=== PATIENT | female | born 1955 | race Caucasian/White ===

== ENCOUNTER 2019-01-25 14:39 | Inpatient (IN) | payer SELFPAY ==
[~2019-01-25] VITALS: Ht 170.2 cm; Wt 86.6 kg
[~2019-01-25 14:39] MED LIST: CAR350 PO; DOC100 PO; DULO20CA16 PO; LISI-362 PO; MELO-150 PO; MET500 PO; NIA500 PO; PRE10 PO; PRE50 PO; VIT D3
[2019-01-25] MEDS ORDERED: PARO40TA88 (14:49)
[2019-01-25] MEDS ORDERED: METF-452 PO (14:49)
[2019-01-25] MEDS ORDERED: TRAM-420 PO (14:49)
[2019-01-25] MEDS ORDERED: SIMV-49 (14:49)
--- NOTE | 2019-01-25 15:16 | ER Report ---
History and Physical Time Seen By MD: 15:15 Hx. of Stated Complaint: pt reports R hip pain from fall tuesday, no blood thinners. reports restless leg syndrome is making it worse HPI/ROS CHIEF COMPLAINT: Right hip pain HISTORY OF PRESENT ILLNESS: 69-year-old female patient presents to emergency room with complaint of right hip pain. Patient states she fell on Tuesday. She states she was walking and caught the outside of her right foot on a little bit of dirt and grass. That caused her to lose her balance and fall onto her right hip. Patient states that she has been having pain since then. She states the pain was tolerable up until Tuesday. She states she has a history of restless leg and had several spasms in that right leg. She states at that time the pain was intolerable. Patient states she's been taking tramadol, ibuprofen and Tylenol 3 for the pain. Patient states that she is a pack and half a day smoker. Patient denies any changes to the numbness and tingling to her lower extremities. She states she has diabetic neuropathy. REVIEW OF SYSTEMS: Respiratory: No cough, no dyspnea. Cardiovascular: No chest pain, no palpitations. Gastrointestinal: No vomiting, no abdominal pain. Musculoskeletal: As noted above Allergies: Coded Allergies: No Known Drug Allergies (Unverified , 01/25/19) Home Meds Reported Medications Melatonin (MELATONIN) 5 Mg Tablet, 5-10 MG PO HS PRN for INSOMNIA 01/25/19 Tramadol Hcl (TRAMADOL HCL) 50 Mg Tablet, 1 TAB PO Q8H PRN for PAIN 01/25/19 Paroxetine Hcl (PAROXETINE HCL) 40 Mg Tablet, QDAY 01/25/19 Simvastatin (SIMVASTATIN) 20 Mg Tablet, QDAY 01/25/19 Metformin Hcl (METFORMIN HCL) 1,000 Mg Tablet, 500 MG PO BID 01/25/19 Lisinopril (Lisinopril) 10 Mg Tablet, 10 MG PO DAILY 05/15/12 Discontinued Reported Medications Meloxicam (Mobic) 15 Mg Tablet, 15 MG PO 05/15/12 [Vit D3] No Conflict Check 05/15/12 Duloxetine Hcl (CYMBALTA) 20 Mg Capsule.dr, 60 MG PO 05/15/12 Niacin (NIASPAN (OR EQUIV)) 500 Mg Tabcr, 500 MG PO 05/15/12 Metformin Hcl (GLUCOPHAGE (OR EQUIV)) 500 Mg Tab, 500 MG PO 05/15/12 Docusate Sodium (COLACE (OR EQUIV)) 100 Mg Cap, 50 MG PO 05/15/12 Pregabalin (Lyrica) 50 Mg Cap, 150 MG PO BID 05/15/12 Carisoprodol (Soma) 350 Mg Tab, 350 MG PO QID 05/15/12 Prednisone (Prednisone) 10 Mg Tab, 10 MG PO QDAY 05/15/12 Past Medical/Surgical History Patient has a past medical history of restless leg, hypertension, hyperlipidemia, diabetes. Patient has a surgical history of a laminectomy, left knee surgery. Patient has a surgical history of cancer, stroke, diabetes. Reviewed Nurses Notes: Yes Hx Smoking: Yes Hx Substance Use Disorder: No Constitutional Vital Sign - Last 24 Hours 01/25/19 01/25/19 01/25/19 01/25/19 14:45 15:14 15:30 16:30 Temp 98.0 Pulse 90 91 97 Resp 16 B/P (MAP) 134/64 124/78 (93) 108/55 (72) 122/59 (80) Pulse Ox 90 90 84 O2 Delivery Room Air 01/25/19 01/25/19 01/25/19 01/25/19 17:00 17:30 17:45 17:45 Pulse 84 B/P (MAP) 119/68 (85) 136/100 (112) Pulse Ox 95 O2 Flow Rate 2.0 01/25/19 01/25/19 18:00 18:05 Pulse 85 87 B/P (MAP) 134/74 (94) Pulse Ox 93 98 Physical Exam General Appearance: The patient is alert, has no immediate need for airway protection and no current signs of toxicity. Respiratory: Chest is non tender, lungs are clear to auscultation. Cardiac: regular rate and rhythm Gastrointestinal: Abdomen is soft and non tender, no masses, bowel sounds normal. Musculoskeletal: Neck: Neck is supple and non tender. Extremities have full range of motion and are non tender. Patient has tenderness to the right hip. Skin: No rashes or lesions. DIFFERENTIAL DIAGNOSIS: After history and physical exam differential diagnosis was considered for hip fracture, hip contusion, dislocation. Medical Decision Making Data Points Result Diagram: 01/25/19 1530 01/25/19 1530 Laboratory Hematology Test 01/25/19 15:30 Red Blood Count 4.92 M/uL (4.17-5.56) Mean Corpuscular Volume 93.8 fL (80.0-96.0) Mean Corpuscular Hemoglobin 32.1 pg (26.0-33.0) Mean Corpuscular Hemoglobin Concent 34.2 g/dL (32.0-36.0) Red Cell Distribution Width 13.5 % (11.5-14.5) Mean Platelet Volume 7.1 fL (7.2-11.1) Neutrophils (%) (Auto) 80.4 % (39.4-72.5) Lymphocytes (%) (Auto) 9.6 % (17.6-49.6) Monocytes (%) (Auto) 8.7 % (4.1-12.4) Eosinophils (%) (Auto) 0.4 % (0.4-6.7) Basophils (%) (Auto) 0.9 % (0.3-1.4) Nucleated RBC Relative Count (auto) 0.0 /100WBC Neutrophils # (Auto) 12.9 K/uL (2.0-7.4) Lymphocytes # (Auto) 1.5 K/uL (1.3-3.6) Monocytes # (Auto) 1.4 K/uL (0.3-1.0) Eosinophils # (Auto) 0.1 K/uL (0.0-0.5) Basophils # (Auto) 0.1 K/uL (0.0-0.1) Nucleated RBC Absolute Count (auto) 0.00 K/uL Sodium Level 129 mmol/L (137-145) Potassium Level 4.5 mmol/L (3.5-5.0) Chloride Level 97 mmol/L (98-107) Carbon Dioxide Level 24 mmol/L (22-31) Blood Urea Nitrogen 12 mg/dl (7-18) Creatinine 0.50 mg/dl (0.52-1.04) Glomerular Filtration Rate Calc > 60.0 Random Glucose 111 mg/dl (75-110) Calcium Level 9.1 mg/dl (8.4-10.2) Total Bilirubin 0.6 mg/dl (0.2-1.3) Aspartate Amino Transf (AST/SGOT) 34 U/L (0-35) Alanine Aminotransferase (ALT/SGPT) 30 U/L (0-56) Alkaline Phosphatase 58 U/L (0-126) Troponin I < 0.012 ng/ml B-Type Natriuretic Peptide 10 pg/ml (0-100) Total Protein 6.9 g/dl (6.3-8.2) Albumin 4.1 g/dl (3.5-5.0) Chemistry Test 01/25/19 15:30 White Blood Count 16.1 k/uL (4.5-11.0) Red Blood Count 4.92 M/uL (4.17-5.56) Hemoglobin 15.8 g/dL (12.0-16.0) Hematocrit 46.2 % (34.0-47.0) Mean Corpuscular Volume 93.8 fL (80.0-96.0) Mean Corpuscular Hemoglobin 32.1 pg (26.0-33.0) Mean Corpuscular Hemoglobin Concent 34.2 g/dL (32.0-36.0) Red Cell Distribution Width 13.5 % (11.5-14.5) Platelet Count 219 K/uL (150-450) Mean Platelet Volume 7.1 fL (7.2-11.1) Neutrophils (%) (Auto) 80.4 % (39.4-72.5) Lymphocytes (%) (Auto) 9.6 % (17.6-49.6) Monocytes (%) (Auto) 8.7 % (4.1-12.4) Eosinophils (%) (Auto) 0.4 % (0.4-6.7) Basophils (%) (Auto) 0.9 % (0.3-1.4) Nucleated RBC Relative Count (auto) 0.0 /100WBC Neutrophils # (Auto) 12.9 K/uL (2.0-7.4) Lymphocytes # (Auto) 1.5 K/uL (1.3-3.6) Monocytes # (Auto) 1.4 K/uL (0.3-1.0) Eosinophils # (Auto) 0.1 K/uL (0.0-0.5) Basophils # (Auto) 0.1 K/uL (0.0-0.1) Nucleated RBC Absolute Count (auto) 0.00 K/uL Glomerular Filtration Rate Calc > 60.0 Calcium Level 9.1 mg/dl (8.4-10.2) Total Bilirubin 0.6 mg/dl (0.2-1.3) Aspartate Amino Transf (AST/SGOT) 34 U/L (0-35) Alanine Aminotransferase (ALT/SGPT) 30 U/L (0-56) Alkaline Phosphatase 58 U/L (0-126) Troponin I < 0.012 ng/ml B-Type Natriuretic Peptide 10 pg/ml (0-100) Total Protein 6.9 g/dl (6.3-8.2) Albumin 4.1 g/dl (3.5-5.0) EKG/Imaging EKG Interpretation 12 lead EKG: Rhythm: normal sinus rhythm with a ventricular rate of 88 bpm [place]: normal QRS: normal ST segments: normal Imaging EXAMINATION: KUB 01/25/2019 3:27 PM HISTORY: fall with right hip pain COMPARISON: Separate right hip series today FINDINGS: Mild to moderate amount of fecal material in the colon but no substantial retention and certainly no distal impaction. Bowel is not distended. Soft tissue contours are unremarkable. Degenerative changes in the spine. Subcapital fracture in the right hip. IMPRESSION: 1. Ouxk-fo-vvskodkr amount of fecal material in the colon without substantial retention or any impaction. 2. Subcapital right femoral neck fracture. Report Dictated By: Sheldon Chin MD at 01/25/2019 4:08 PM Report E-Signed By: Sheldon Chin MD at 01/25/2019 4:10 PM EXAMINATION: Right hip, 2 views 01/25/2019 3:27 PM HISTORY: Fall on 01/20/2019 COMPARISON: Separate KUB today. AP pelvis 11/12/2011. Right hip 05/08/2007 FINDINGS: Subcapital femoral neck fracture in the proximal right femur. Femoral head still articulates within the acetabulum. No other acute bony finding in the pelvis. IMPRESSION: Subcapital right femoral neck fracture. Report Dictated By: Sheldon Chin MD at 01/25/2019 4:06 PM Report E-Signed By: Sheldon Chin MD at 01/25/2019 4:11 PM EXAMINATION: Portable AP Chest 01/25/2019 3:27 PM HISTORY: fall with right hip pain COMPARISON: 06/23/2012 FINDINGS: Cardiomediastinal contours: Normal Lungs and pleura: Stable haziness along left heart border presumptively pericardial fat or lingular scarring. No acute pulmonary or pleural process. Bones/soft tissues: Normal IMPRESSION: Unremarkable portable chest. Report Dictated By: Sheldon Chin MD at 01/25/2019 4:09 PM Report E-Signed By: Sheldon Chin MD at 01/25/2019 4:10 PM HIP RIGHT COMPARISON: Right hip radiograph earlier today HISTORY: hip fx TECHNIQUE: 1 AP traction view of the right hip FINDINGS: BONES: Right femoral head is aligned with the acetabulum. Subcapital right femoral neck fracture again noted. With traction there is improved femoral alignment with mild impaction. The rest of the visualized bones are unchanged. SOFT TISSUES: Negative. No visible soft tissue swelling. EFFUSION: None suggested. OTHER: Negative. IMPRESSION: Acute subcapital right hip fracture in improved alignment with traction, with mild impaction. Report Dictated By: Sanjeev Zavala at 01/25/2019 6:01 PM Report E-Signed By: Sanjeev Zavala at 01/25/2019 6:03 PM ED Course/Re-evaluation ED Course Patient was admitted to an exam room, history and physical were obtained. Differential diagnoses were considered. On examination lungs are clear, heart is regular, abdomen soft nontender. Patient did have some tenderness to the right hip. X-rays done of the right hip, chest x-ray, EKG. EKG showed a normal sinus rhythm, chest x-ray showed no acute cardiopulmonary processes. The right hip did show a comminuted subcapital fracture. I discussed case with Dr. Garza, orthopedic surgeon. Near viewed the images. He requested that we do a traction x-ray. He requested that I have the hospitals except the patient. Patient will be seen by one of his associates for repair tomorrow. I discussed this with the patient verbalized understanding and agreement. I discussed the case with Dr. Rosado, hospitalist, who agreed to accept the patient for admission. Decision to Disposition Date: Jan 25, 2019 Decision to Disposition Time: 18:01 Depart Departure Latest Vital Signs Vital Signs Date Time Temp Pulse Resp B/P (MAP) Pulse Ox O2 Delivery O2 Flow Rate FiO2 01/25/19 18:05 87 98 01/25/19 18:00 134/74 (94) 01/25/19 17:45 2.0 01/25/19 14:45 98.0 16 Room Air Impression: Primary Impression: Closed right hip fracture Condition: Condition Unchanged Disposition: Admitted from ER Referrals: ELVA BURNS MD (PCP) Problem Qualifiers Primary Impression: Closed right hip fracture Encounter type: initial encounter Qualified Codes: S72.001A - Fracture of unspecified part of neck of right femur, initial encounter for closed fracture RIA ASHLEY Jan 25, 2019 15:16
--- NOTE | 2019-01-25 15:39 | EKG ---
FACILITY: [facility] [place] PATIENT NAME: EARNESTINE HERNANDEZ : [id number] MR: [id number] V: [id number] EXAM DATE: ORDERING PHYSICIAN: RIA ASHLEY TECHNOLOGIST: Test Reason : fall Blood Pressure : / mmHG Vent. Rate : 088 BPM Atrial Rate : 088 BPM P-R Int : 144 ms QRS Dur : 092 ms QT Int : 360 ms P-R-T Axes : 020 075 053 degrees QTc Int : 435 ms Normal sinus rhythm Normal ECG No previous ECGs available Confirmed by Gunnar Bolaños ([id number]) on 01/25/2019 7:40:52 PM Referred By: Confirmed By:Gunnar Bear
[2019-01-25 15:55] LABS: PLATELET COUNT, AUTOMATED 219 K/uL (150-450)
--- NOTE | 2019-01-25 16:15 | RADIOLOGY IMAGING REPORT ---
FACILITY: [facility] [place] PATIENT NAME: Blanca Slaughter : 1955 MR: [id number] V: [id number] EXAM DATE: ORDERING PHYSICIAN: RIA ASHLEY TECHNOLOGIST: Location: [facility] [place] Patient: Blanca Slaughter : 1955 Visit/Account:[id number] Date of Sevice: 01/25/2019 EXAMINATION: KUB 01/25/2019 3:27 PM HISTORY: fall with right hip pain COMPARISON: Separate right hip series today FINDINGS: Mild to moderate amount of fecal material in the colon but no substantial retention and c ertainly no distal impaction. Bowel is not distended. Soft tissue contours are unremarkable. Degen erative changes in the spine. Subcapital fracture in the right hip. IMPRESSION: 1. Chsw-bt-dcucijzh amount of fecal material in the colon without substantial retention or any impac tion. 2. Subcapital right femoral neck fracture. Report Dictated By: Sheldon Chin MD at 01/25/2019 4:08 PM Report E-Signed By: Sheldon Chin MD at 01/25/2019 4:10 PM WSN:[id number]
--- NOTE | 2019-01-25 16:15 | RADIOLOGY IMAGING REPORT ---
FAC[place]: [facility] [place] PATIENT NAME: Blanca Slaughter : 1955 MR: [id number] V: [id number] EXAM DATE: ORDERING PHYSICIAN: RIA ASHLEY TECHNOLOGIST: Location: [facility] [place] Patient: Blanca Slaughter : 1955 Visit/Account:[id number] Date of Sevice: 01/25/2019 EXAMINATION: Portable AP Chest 01/25/2019 3:27 PM HISTORY: fall with right hip pain COMPARISON: 06/23/2012 FINDINGS: Cardiomediastinal contours: Normal Lungs and pleura: Stable haziness along left heart border presumptively pericardial fat or lingular s carring. No acute pulmonary or pleural process. Bones/soft tissues: Normal IMPRESSION: Unremarkable portable chest. Report Dictated By: Sheldon Chin MD at 01/25/2019 4:09 PM Report E-Signed By: Sheldon Chin MD at 01/25/2019 4:10 PM WSN:[id number]
--- NOTE | 2019-01-25 16:17 | RADIOLOGY IMAGING REPORT ---
FACILITY: [facility] PATIENT NAME: Blanca Slaughter : 1955 MR: [id number] V: [id number] EXAM DATE: ORDERING PHYSICIAN: RIA ASHLEY TECHNOLOGIST: Location: [facility] - [place] Patient: Blanca Slaughter : 1955 Visit/Account:[id number] Date of Sevice: 01/25/2019 EXAMINATION: Right hip, 2 views 01/25/2019 3:27 PM HISTORY: Fall on 01/20/2019 COMPARISON: Separate KUB today. AP pelvis 11/12/2011. Right hip 05/08/2007 FINDINGS: Subcapital femoral neck fracture in the proximal right femur. Femoral head still articula ronni within the acetabulum. No other acute bony finding in the pelvis. IMPRESSION: Subcapital right femoral neck fracture. Report Dictated By: Sheldon Chin MD at 01/25/2019 4:06 PM Report E-Signed By: Sheldon Chin MD at 01/25/2019 4:11 PM WSN:[id number]
[2019-01-25] MEDS ORDERED: traMADol 50 MG TAB PO ONE (16:30)
[2019-01-25] MEDS ORDERED: MORPHINE 4 MG/ML SDV IVP ONE (17:30)
--- NOTE | 2019-01-25 18:07 | RADIOLOGY IMAGING REPORT ---
FACILITY: [facility] - [place] PATIENT NAME: Blanca Slaughter : 1955 MR: [id number] V: [id number] EXAM DATE: ORDERING PHYSICIAN: RIA ASHLEY TECHNOLOGIST: Location: [facility] - [place] Patient: Blanca Slaughter : 1955 Visit/Account:[id number] Date of Sevice: 01/25/2019 HIP RIGHT COMPARISON: Right hip radiograph earlier today HISTORY: hip fx TECHNIQUE: 1 AP traction view of the right hip FINDINGS: BONES: Right femoral head is aligned with the acetabulum. Subcapital right femoral neck fracture aga in noted. With traction there is improved femoral alignment with mild impaction. The rest of the visu alized bones are unchanged. SOFT TISSUES: Negative. No visible soft tissue swelling. EFFUSION: None suggested. OTHER: Negative. IMPRESSION: Acute subcapital right hip fracture in improved alignment with traction, with mild impaction. Report Dictated By: Sanjeev Zavala at 01/25/2019 6:01 PM Report E-Signed By: Sanjeev Zavala at 01/25/2019 6:03 PM WSN:[id number]
[2019-01-25 18:47] VITALS: BP 115/53
[2019-01-25] MEDS ORDERED: FLUSH 10 ML SYR IVP PRN (19:10)
[2019-01-25] MEDS ORDERED: MELA5TAB6 PO (19:10)
[2019-01-25] MEDS ORDERED: MELATONIN 3 MG TAB PO PRN (19:10)
--- NOTE | 2019-01-25 19:29 | History & Physical ---
History of Present Illness Chief Complaint R hip pain History of Present Illness 63F presented with R hip pain. PMHx significant for HTN, tobacco abuse, chronic pain. Reports fell Tuesday and had immediate onset pain. Has had more difficulties ambulating than usual. She does endorse chronic back pain and walks with walker. Smokes 1.5 ppd. Denies cardiac, respiratory problems. Admitted for surgical repair. History Problems: (1) HTN (hypertension) Status: Chronic (2) Chronic back pain Status: Chronic (3) Tobacco abuse Status: Chronic Home Meds Reported Medications Melatonin (MELATONIN) 5 Mg Tablet, 5-10 MG PO HS PRN for INSOMNIA 01/25/19 Tramadol Hcl (TRAMADOL HCL) 50 Mg Tablet, 1 TAB PO Q8H PRN for PAIN 01/25/19 Paroxetine Hcl (PAROXETINE HCL) 40 Mg Tablet, QDAY 01/25/19 Simvastatin (SIMVASTATIN) 20 Mg Tablet, QDAY 01/25/19 Metformin Hcl (METFORMIN HCL) 1,000 Mg Tablet, 500 MG PO BID 01/25/19 Lisinopril (Lisinopril) 10 Mg Tablet, 10 MG PO DAILY 05/15/12 Discontinued Reported Medications Meloxicam (Mobic) 15 Mg Tablet, 15 MG PO 05/15/12 [Vit D3] No Conflict Check 05/15/12 Duloxetine Hcl (CYMBALTA) 20 Mg Capsule.dr, 60 MG PO 05/15/12 Niacin (NIASPAN (OR EQUIV)) 500 Mg Tabcr, 500 MG PO 05/15/12 Metformin Hcl (GLUCOPHAGE (OR EQUIV)) 500 Mg Tab, 500 MG PO 05/15/12 Docusate Sodium (COLACE (OR EQUIV)) 100 Mg Cap, 50 MG PO 05/15/12 Pregabalin (Lyrica) 50 Mg Cap, 150 MG PO BID 05/15/12 Carisoprodol (Soma) 350 Mg Tab, 350 MG PO QID 05/15/12 Prednisone (Prednisone) 10 Mg Tab, 10 MG PO QDAY 05/15/12 Allergies: Coded Allergies: No Known Drug Allergies (Unverified , 01/25/19) Patient History: FH: Alzheimers disease MOTHER FH: HTN (hypertension) FATHER MOTHER FH: alcohol abuse FATHER FH: breast cancer MOTHER FH: diabetes mellitus BROTHER OR SISTER FH: stroke FATHER FH: throat cancer BROTHER OR SISTER Hx Smoking: Yes (1.5 packs per day) Caffeine Intake: Coffee Caffeine/Cups Per Day: all day Hx Alcohol Use: No Hx Substance Use Disorder: No Review of Systems All Systems Reviewed/Normal: Yes, Except as Noted Cardiovascular: No Chest Pain, No Palpitations Respiratory: No Shortness of Breath, No Cough Gastrointestinal: No Nausea, No Vomiting Musculoskeletal: Pain, Impaired Mobility Exam Vital Signs Vital Signs Date Time Temp Pulse Resp B/P (MAP) Pulse Ox O2 Delivery O2 Flow Rate FiO2 01/25/19 18:47 99.1 84 14 115/53 (73) 92 Nasal Cannula 2.0 General Appearance: Alert, Awake, No Acute Distress, Afebrile Neuro: No Gross deficits ENT: Normal Cardiovascular: Normal Rhythm & Peripheral Pulses Respiratory: No Respiratory Distress, Clear to Auscultation GI: Abd Soft and Non-Tender Extremities: Soft and Non Tender, Warm, Pulses, Perfused Medical Decision Making Data Points Result Diagram: 01/25/19 1530 01/25/19 1530 EKG / Imaging EKG Interpretation NSR Imaging CXR no acute process. Assessment and Plan Problems: (1) Closed right hip fracture Status: Acute Assessment & Plan: Subcapital hip Fx. Dr Garza consulted, anticipate repair with Dr Hall tomorrow. EKG NSR, CXR no acute pathology, reports limited ability to perform one metabolic equivalent exercise due to back pain. She is diabetic with well controlled sugars, does smoke 1.5ppd and is obese. Acceptable surgical risk patient for urgent repair of R hip, NPO at midnight. Anticoagulation after with 325mg ASA. (2) Diabetes Assessment & Plan: Hold chronic metformin, appears well controlled. Accucheck ACHS while eating or q6h while NPO. Cover with SSI #2. (3) HTN (hypertension) Status: Chronic Assessment & Plan: On chronic lisinopril, continue. (4) Tobacco abuse Status: Chronic Assessment & Plan: On 14mg nicotine patch. Venous Thromboembolism Antithrombotics Is Pt On Any Antithrombotics?: Yes Exam Sepsis Risk: No Definite Risk Problem Qualifiers (1) Closed right hip fracture: Encounter type: initial encounter Qualified Codes: S72.001A - Fracture of unspecified part of neck of right femur, initial encounter for closed fracture SHAUNNA ERYES DO Jan 25, 2019 19:29
[2019-01-25] MEDS: MORPHINE 4 MG/ML SDV IVP PRN (20:03)
[2019-01-25] MEDS: NICOTINE 14 MG/24 HR PATCH TD SCH (20:03)
--- NOTE | 2019-01-25 21:43 | CONSULTATION ---
EVENT DATE: January 25, 2019 CONSULTING PHYSICIAN Gaston Garza MD CHIEF COMPLAINT Right hip pain. HISTORY OF PRESENT ILLNESS Ms. Slaughter is a 63-year-old female who sustained a ground-level fall this past Tuesday. She initially had pain in the right arm as well as a little bit of pain in the right hip, but she went ahead and continued to go about her activities of daily living until today when she had a worsening of that right hip pain. She presented to the Emergency Department with essentially an inability to ambulate on the right lower extremity. I was called to evaluate the patient after x-rays revealed a displaced subcapital right femoral neck fracture. Ms. Slaughter has multiple medical comorbidities including diabetes, hypertension, and hyperlipidemia. She is also obese. PHYSICAL EXAMINATION GENERAL: Well-appearing, well-developed female in no acute distress. She appears comfortable in the bed. EXTREMITIES: Her right lower extremity is shortened and externally rotated compared to the left. She has pain with any motion of that right hip. Distally, her muscular strength is 5/5 in bilateral quadriceps, hamstrings, tibialis anterior, extensor hallucis longus, and gastroc/soleus complex. She has some baseline subjectively diminished sensation out towards the distal feet bilaterally, but sensation is otherwise symmetric and intact. Dorsalis pedis pulses are 2+ bilaterally. AP and lateral as well as traction views of the right hip were available for review, and again, these show a shortened, displaced, comminuted subcapital femoral neck fracture. IMPRESSION AND PLAN Ms. Slaughter has a right hip fracture in need of surgical fixation. I discussed with her the necessity of a hemiarthroplasty given the nature of her fracture, and she voiced an understanding. She is going to be taken care of tomorrow, most likely by Dr. Hollins in the afternoon with a right hip hemiarthroplasty. [facility]ITAL[facility]
[2019-01-26] VITALS (12 sets, daily range): BP systolic 87–137; BP diastolic 48–88
[2019-01-26] MEDS: MORPHINE 4 MG/ML SDV IVP PRN ×5 (05:40→23:00)
[2019-01-26 05:46] LABS: PLATELET COUNT, AUTOMATED 225 K/uL (150-450)
[2019-01-26] MEDS: ACETAMINOPHEN 325 MG TAB PO PRN ×2 (07:17→20:00)
[2019-01-26] MEDS: NICOTINE 14 MG/24 HR PATCH TD SCH (09:00)
[2019-01-26] MEDS: LISINOPRIL 10 MG TAB PO SCH (09:00)
--- NOTE | 2019-01-26 09:50 | Hospitalist Progress Note ---
Subjective Progress Notes Subjective She was admitted for hip fracture. She plans to get surgical intervention this afternoon. She is NPO. She has no complaints. Patient Complains of: Cardiovascular: No: Chest Pain Respiratory: Cough; No: Shortness of Breath Physical Exam Vital Signs Date Time Temp Pulse Resp B/P (MAP) Pulse Ox O2 Delivery O2 Flow Rate FiO2 01/26/19 07:52 96 Nasal Cannula 2.0 01/26/19 07:14 100.1 80 16 114/48 (70) Intake and Output 01/26/19 01:00 Output Total 1850 ml Balance -1850 ml Output Urine Total 1850 ml General Appearance: Alert, Awake, No Acute Distress, Afebrile Neuro: No Gross deficits Cardiovascular: Regular Rate and Rhythm Respiratory: No Respiratory Distress, Other (expiratory wheezes noted, she has productive cough) GI: Soft and Non-Tender Extremities: Warm, Perfused; No Edema Psych: Alert & Oriented X3, Appropriate Mood & Affect Result Diagram: 01/26/1952901/26/19 0530 Assessment and Plan Problems: (1) Closed right hip fracture Status: Acute Assessment & Plan: Subcapital hip Fx. Dr Garza consulted, anticipate repair with Dr Hall tomorrow. EKG NSR, CXR no acute pathology, reports limited ability to perform one metabolic equivalent exercise due to back pain. She is diabetic with well controlled sugars, does smoke 1.5ppd and is obese. Acceptable surgical risk patient for urgent repair of R hip, NPO at midnight. Anticoagulation after with 325mg ASA. (2) Wheezing Status: Chronic Assessment & Plan: She reports chronic cough and wheezing. Likely has COPD secondary to long smoking history, but not diagnosed. She will be placed on Duoneb scheduled nebulizers. Flutter therapy and IS. (3) Diabetes Assessment & Plan: Hold chronic metformin, appears well controlled. Accucheck ACHS while eating or q6h while NPO. Cover with SSI #2. (4) HTN (hypertension) Status: Chronic Assessment & Plan: On chronic lisinopril, continue. (5) Tobacco abuse Status: Chronic Assessment & Plan: On 14mg nicotine patch. Exam Sepsis Risk: No Definite Risk Problem Qualifiers (1) Closed right hip fracture: Encounter type: initial encounter Qualified Codes: S72.001A - Fracture of unspecified part of neck of right femur, initial encounter for closed fracture MANRIQUEZ,RICHIE M RELIABILITY TECHNOLOGIST Jan 26, 2019 09:50
[2019-01-26] MEDS ORDERED: VANCOMYCIN 1 GM VIAL ONE ×2 (09:52→15:00)
[2019-01-26] MEDS ORDERED: NS(*) 0.9% 1000 ML BAG 1,000 ML IV PRN (10:30)
[2019-01-26] MEDS: ALBUTEROL/IPRATROPIUM 3 ML NEB NEB SCH ×2 (11:05→17:04)
[2019-01-26] MEDS ORDERED: fentaNYL CITR 250 MCG/5 ML AMP ONE ×2 (11:29→15:41)
[2019-01-26] MEDS ORDERED: LIDOCAINE 2% IV 100 MG/5ML SYR ONE (11:30)
[2019-01-26] MEDS ORDERED: PROPOFOL EMUL(*) 10MG/ML 20 ML 20 ML ONE (11:30)
[2019-01-26] MEDS ORDERED: NORMOSOL R SOLN(*) 1000 ML BAG 1,000 ML IV ONE (13:40)
[2019-01-26] MEDS ORDERED: FAMOTIDINE(*) 20MG/50ML PREMIX 50 ML IVPB ONE (13:40)
[2019-01-26] MEDS ORDERED: ceFAZolin(*) 2GM/D5W 50ML 50 ML IVPB ONE (14:47)
[2019-01-26] MEDS ORDERED: TRANEXAMIC AC 1000 MG/10ML SDV 1,000 MG in DEXTROSE 5% 50 ML BAG 50 ML IV ONE (14:50)
[2019-01-26] MEDS ORDERED: MIDAZOLAM 2 MG/2 ML VIAL IVP PRN (14:50)
[2019-01-26] MEDS ORDERED: ROPIVACAINE/EPI/CLONIDINE/KET 50 ML SYRINGE INJ ONE (14:50)
[2019-01-26] MEDS ORDERED: CELECOXIB 200 MG CAP PO ONE (14:55)
[2019-01-26] MEDS ORDERED: PREGABALIN 150 MG CAPSULE PO ONE (14:55)
[2019-01-26] MEDS ORDERED: ACETAMINOPHEN 500 MG TAB PO ONE (14:55)
[2019-01-26] MEDS ORDERED: DEXAMETHASONE SOD PHOS 10MG/ML ONE (15:19)
[2019-01-26] MEDS ORDERED: ONDANSETRON 4 MG/2 ML VIAL ONE (15:20)
[2019-01-26] MEDS ORDERED: KETAMINE HCL 200 MG/20 ML MDV ONE (15:20)
[2019-01-26] MEDS ORDERED: fentaNYL CITR 100 MCG/2 ML AMP ONE (16:48)
[2019-01-26] MEDS ORDERED: BENZOCAINE/MENTHOL 1 EACH LOZG PO PRN (17:15)
[2019-01-26] MEDS ORDERED: MAGNESIUM HYDROXIDE* 30ML UDCP PO PRN (17:15)
[2019-01-26] MEDS ORDERED: BISACODYL 10 MG SUPP PR PRN (17:15)
[2019-01-26] MEDS ORDERED: FLUSH 10 ML SYR IVP PRN (17:15)
[2019-01-26] MEDS ORDERED: PROMETHAZINE 25 MG/ML 1 ML AMP IVP PRN (17:15)
[2019-01-26] MEDS ORDERED: ACETAMINOPHEN 325 MG TAB PO PRN (17:15)
--- NOTE | 2019-01-26 17:20 | RADIOLOGY IMAGING REPORT ---
FACILITY: [facility] PATIENT NAME: Blanca Slaughter : 1955 MR: [id number] V: [id number] EXAM DATE: ORDERING PHYSICIAN: SHAUNNA KNOX TECHNOLOGIST: Location: [facility] Patient: Blanca Slaughter : 1955 Visit/Account:[id number] Date of Sevice: 01/26/2019 PELVIS HISTORY: POST-OP PLACEMENT COMPARISON: X-ray examination the right hip January 25, 2019 FINDINGS: Anatomic alignment status post right total hip arthroplasty. Otherwise, bones are stable without unex pected finding. IMPRESSION: Anatomic alignment status post right total hip arthroplasty. Report Dictated By: Brian Stovall MD at 01/26/2019 5:14 PM Report E-Signed By: Brian Stovall MD at 01/26/2019 5:15 PM WSN:[id number]
--- NOTE | 2019-01-26 18:03 | OPERATIVE REPORT 1 ---
EVENT DATE: January 25, 2019 SURGEON: Abdoul Hollins MD ANESTHESIOLOGIST: Narendra Sullivan MD ANESTHESIA: General. REAL ESTATE SALES MANAGER: None. PREOPERATIVE DIAGNOSIS Right hip displaced subcapital femoral neck fracture. POSTOPERATIVE DIAGNOSIS Right hip displaced subcapital femoral neck fracture. PROCEDURE PERFORMED Right hip hemiarthroplasty for fracture. ESTIMATED BLOOD LOSS 200 mL. DRAINS None. SPECIMENS None. COMPLICATIONS None apparent. IMPLANTS USED [place] Accolade II 132-degrees neck angle hip stem size 6, a Unitrax endoprosthesis head component 47 mm with a standard neck length V40 neck sleeve adjustment. INDICATIONS Blanca is a 63-year-old woman who fell a few days ago. She has been unable to ambulate. She was admitted to the hospital with a broken hip. Surgery is indicated to treat this fracture to facilitate mobility. DESCRIPTION OF PROCEDURE Patient is taken to the operating room and placed supine on the operating table. General anesthesia is induced. Antibiotics and TXA are administered IV. She is positioned in left lateral decubitus on a well-padded peg board. All bony prominences and superficial nerves are well padded. The pelvis is secured in the vertical position with appropriate pelvic positioners. Right hip girdle and lower extremity are prepped and draped in the usual sterile fashion for orthopedic surgery. A small incision in the posterolateral portion is made and carried down through the skin and subcutaneous tissue to the deep fascia. The fascia was incised over the tip of the trochanter, extended distally and laterally in line with the femur and proximally in line with the rudy fibers. Rudy fibers are split bluntly. Trochanteric bursa is excised. Interval between the abductor and external rotator is identified. Blunt Hohmann is used to protect the abductor mechanism. An L capsulotomy/tenotomy is performed with the horizontal limb above the piriformis. The capsule and external rotators are released off the posterolateral femur, tagged with #2 Vicryl for later anatomic reattachment. The hip is rotated, and the femoral head is extracted. This is sized to 47 mm. This size will be selected for the endoprosthesis. The acetabulum is inspected, and there is no notable wear. The ligamentum teres is excised. All loose debris is cleared from the field and all bone bits. Clean- up neck cut is made at 1.5 cm, and the superior neck is resected with a Misoca cutter. Franki awl finds the canal. A taper broaching is performed up to 6 where nice stability and protestant of medial-lateral width for the endoprosthesis are achieved. The trial reduction is performed off this broach. A nice protestant of limb length and stability is achievable. Broach is removed, surfaces are copiously lavaged, and the actual stem is impacted into position, and this seats nicely. Trial reduction is performed with various neck lengths. Standard is felt to be optimal for protestant of limb length and stability and soft tissue tension. Khan taper is lavaged and dried, and the Unitrax neck adjustment sleeve is placed into the unipolar head. These were impacted onto the clean and dried Khan taper. The joint is reduced. The wound is copiously lavaged. Irrisept is placed throughout the wound for at least a minute and then removed and copiously lavaged again. Vancomycin powder is placed deep in the wound. Capsule is reapproximated anatomically through drill holes in the posterolateral femur. The defect is closed distally with #2 Ethibond, proximally with #2 Vicryl. The subcutaneous tissue is lavaged. Hemostasis is assured. Derm is closed with 3-0 Vicryl, skin with surgical gloria. Xeroform is applied for a dry, sterile dressing and compression wrap. Patient is rolled supine. Abduction pillow is placed. She is awakened from anesthesia and taken to the recovery room in stable condition having tolerated the procedure well. PLAN Plan is for standard LINDSEY rehab protocol, weight bear as tolerated, posterior hip precautions. [facility]
--- NOTE | 2019-01-26 19:43 | Miscellaneous Provider Note ---
Miscellaneous Provider Note Note Doing well postoperatively. On 2.5 liters of O2 and saturating at 93%. She does have some end-expiratory wheezes on exam. JONNATHANS. Ranjith ordered tid. She has a nicotine patch in place. ABDIRAHMAN SORIA MD Jan 26, 2019 19:43
[2019-01-26] MEDS: INSULIN HUM LISPRO 100 UN/ML 3 ML VIAL SUBQ PRN (21:59)
[2019-01-26] MEDS: ceFAZolin(*) 1 GM VIAL 1 GM in NS(*) 0.9% 100 ML MINI-BAG 100 ML IVPB SCH (23:00)
[2019-01-27] VITALS (7 sets, daily range): BP systolic 96–113; BP diastolic 46–56
[2019-01-27] MEDS: ALBUTEROL/IPRATROPIUM 3 ML NEB NEB SCH ×3 (05:54→17:42)
[2019-01-27] MEDS: MORPHINE 4 MG/ML SDV IVP PRN ×4 (06:04→19:48)
[2019-01-27] MEDS: ACETAMINOPHEN 325 MG TAB PO PRN (06:04)
[2019-01-27] MEDS: ceFAZolin(*) 1 GM VIAL 1 GM in NS(*) 0.9% 100 ML MINI-BAG 100 ML IVPB SCH ×2 (06:04→14:53)
--- NOTE | 2019-01-27 06:34 | Hospitalist Progress Note ---
Subjective Progress Notes Subjective Doing well. Pain is controlled. No new complaints. Physical Exam Vital Signs Date Time Temp Pulse Resp B/P (MAP) Pulse Ox O2 Delivery O2 Flow Rate FiO2 01/27/19 06:01 67 16 01/27/19 05:54 93 Nasal Cannula 2.5 01/27/19 02:00 112/56 (74) 01/26/19 19:38 98.1 Intake and Output 01/27/19 07:00 Intake Total 1630 ml Output Total 2675 ml Balance -1045 ml Intake Oral 130 ml IV Total 1500 ml Output Urine Total 2475 ml Estimated Blood Loss 200 ml # Voids 1 General Appearance: Alert, Awake, No Acute Distress, Afebrile Neuro: No Gross deficits Cardiovascular: Regular Rate and Rhythm Respiratory: Clear to Auscultation GI: Soft and Non-Tender Extremities: Warm, Perfused Psych: Appropriate Mood & Affect Result Diagram: 01/26/1952901/26/19529 Assessment and Plan Problems: (1) Closed right hip fracture Status: Acute Assessment & Plan: Subcapital hip Fx. Dr Garza initially consulted, Dr Hall repaired 01/26. EKG NSR, CXR no acute pathology, reports limited ability to perform one metabolic equivalent exercise due to back pain. She is diabetic with well controlled sugars, does smoke 1.5ppd and is obese. Acceptable surgical risk patient for urgent repair of R hip. She tolerated surgery well. Will place on 325mg ASA for DVT prophylaxis. (2) Wheezing Status: Chronic Assessment & Plan: She reports chronic cough and wheezing. Likely has COPD secondary to long smoking history, but not diagnosed. She is doing well on Duoneb scheduled nebulizers. Flutter therapy and IS. (3) Diabetes Assessment & Plan: Held chronic metformin initially. Accucheck ACHS. Restart metformin this am and also cover with SSI #2. (4) HTN (hypertension) Status: Chronic Assessment & Plan: On chronic lisinopril, continue. (5) Tobacco abuse Status: Chronic Assessment & Plan: On 14mg nicotine patch. Time Spent on Plan of Care: < 30 min Exam Sepsis Risk: No Definite Risk Problem Qualifiers (1) Closed right hip fracture: Encounter type: initial encounter Qualified Codes: S72.001A - Fracture of unspecified part of neck of right femur, initial encounter for closed fracture ABDIRAHMAN SORIA MD Jan 27, 2019 06:34
[2019-01-27] MEDS: INSULIN HUM LISPRO 100 UN/ML 3 ML VIAL SUBQ PRN ×2 (07:24→20:58)
[2019-01-27] MEDS: metFORMIN HCL 500 MG TAB PO SCH ×2 (07:27→16:23)
[2019-01-27] MEDS: PARoxetine HCL 20 MG TAB PO SCH (08:29)
[2019-01-27] MEDS: LISINOPRIL 10 MG TAB PO SCH (08:29)
[2019-01-27] MEDS: SIMVASTATIN 20 MG TAB PO SCH (08:29)
[2019-01-27] MEDS: ASPIRIN 325 MG TAB PO SCH (08:29)
[2019-01-27] MEDS: NICOTINE 14 MG/24 HR PATCH TD SCH (08:31)
--- NOTE | 2019-01-27 09:43 | NUR ---
Physical Therapy Impression PT eval complete. Pt educated on LINDSEY precautions and these were reinforced throughout session. Nawaf for bed mobility, CGA for transfers and ambulation x25' with RW. Pt instructed in step to gait pattern which improved pt's safety and tolerance to ambulation. SpO2 WNL on 3L. Recommendation pending progress with PT. Physical Therapy Goals 1: Pt to complete bed mobility with Nawaf 2: Pt to complete transfers with SBA and 4WW 3: Pt to ambulate 80' with SBA and 4WW 4: Pt to asc/desc platform stair x2 with 4WW and CGA. 5: Pt to demonstrate adherence to LINDSEY precautions. Patient's Goals
--- NOTE | 2019-01-27 13:26 | NUR ---
Physical Therapy Impression SBA for transfers and ambulation x65' with RW. Pt requires standing rest break during ambulation d/t poor overall endurance. She is demonstrating good awareness of LINDSEY precautions, SPO2 89% on 2L O2. Physical Therapy Goals 1: Pt to complete bed mobility with Meaghan 2: Pt to complete transfers with SBA and 4WW 3: Pt to ambulate 80' with SBA and 4WW 4: Pt to asc/desc platform stair x2 with 4WW and CGA. 5: Pt to demonstrate adherence to LINDSEY precautions. Patient's Goals
[2019-01-28] MEDS: MORPHINE 4 MG/ML SDV IVP PRN ×2 (00:11→03:45)
[2019-01-28 03:43] VITALS: BP 106/53
[2019-01-28] MEDS: ALBUTEROL/IPRATROPIUM 3 ML NEB NEB SCH ×2 (05:15→12:00)
[2019-01-28 06:46] VITALS: BP 93/46
[2019-01-28] MEDS: SIMVASTATIN 20 MG TAB PO SCH (08:46)
[2019-01-28] MEDS: NICOTINE 14 MG/24 HR PATCH TD SCH (08:46)
[2019-01-28] MEDS: ASPIRIN 325 MG TAB PO SCH (08:46)
[2019-01-28] MEDS: metFORMIN HCL 500 MG TAB PO SCH (08:46)
[2019-01-28] MEDS: PARoxetine HCL 20 MG TAB PO SCH (08:46)
[2019-01-28] MEDS: LISINOPRIL 10 MG TAB PO SCH (08:48)
--- NOTE | 2019-01-28 08:59 | Hospitalist Progress Note ---
Subjective Progress Notes Subjective She reports some pain in surgical site, but overall improved. She is hoping to discharge soon. Physical Exam Vital Signs Date Time Temp Pulse Resp B/P (MAP) Pulse Ox O2 Delivery O2 Flow Rate FiO2 01/28/19 06:46 99.0 84 12 93/46 (62) 89 Nasal Cannula 01/28/19 05:15 1.0 Intake and Output 01/28/19 07:00 Intake Total 1800 ml Output Total 4900 ml Balance -3100 ml Intake Oral 1700 ml IV Total 100 ml Output Urine Total 4900 ml General Appearance: Alert, Awake Result Diagram: 01/26/19 0530 01/26/19 0530 Assessment and Plan Problems: (1) Closed right hip fracture Status: Acute Assessment & Plan: Subcapital hip fracture. Dr. Garza initially consulted and Dr. Hollins performed LINDSEY 01/26. She tolerated surgery well. She is on 325mg ASA for DVT prophylaxis. Will plan on discharge when Dr. Hollins and PT/OT believe she is ready. (2) Wheezing Status: Chronic Assessment & Plan: She reports chronic cough and wheezing. Likely has COPD secondary to long smoking history, but had not previously been diagnosed. She is doing well on scheduled nebulizers. (3) Diabetes Assessment & Plan: Held her usual metformin initially. Glucose checks AC and HS have been reasonable. Restarted metformin with SSI as needed. (4) HTN (hypertension) Status: Chronic Assessment & Plan: On usual lisinopril, continue with parameters. (5) Tobacco abuse Status: Chronic Assessment & Plan: On 14mg nicotine patch. Exam Sepsis Risk: No Definite Risk Problem Qualifiers (1) Closed right hip fracture: Encounter type: initial encounter Qualified Codes: S72.001A - Fracture of unspecified part of neck of right femur, initial encounter for closed fracture LITZY SORIA MD Jan 28, 2019 08:59
--- NOTE | 2019-01-28 09:35 | NUR ---
Physical Therapy Impression Pt progressing well with functional mobility. SBA for transfers and ambulation x100' with RW, pt requires standing rest breaks throughout. Pt with good tolerance to sit to supine bed mobility, and completed with SBA with cues for hip precautions. Offloading of sacrum completed d/t pain and h/o sacral pressure injuries. Plan to address stairs this PM as the pt plans to d/c home today. Physical Therapy Goals 1: Pt to complete bed mobility with Meaghan 2: Pt to complete transfers with SBA and 4WW 3: Pt to ambulate 80' with SBA and 4WW 4: Pt to asc/desc platform stair x2 with 4WW and CGA. 5: Pt to demonstrate adherence to LINDSEY precautions. Patient's Goals
[2019-01-28 15:10] VITALS: BP 108/54
--- NOTE | 2019-01-28 15:37 | NUR ---
Physical Therapy Impression The patient completed bed mobility with Harvinder as well as transfers and ambulation with 4WW. PT instruction for stair negotiation, pt asc/desc platform stair with CGA x 2 reps with good tolerance. Pt instructed in all supine LE ther-ex with good demonstration and various education provided regarding LINDSEY pxns. Pt is self pay and does not plan to f/u with PT despite recommendations. She is safe to d/c home from a mobility standpoint with assist from family when medically appropriate. Physical Therapy Goals 1: Pt to complete bed mobility with Meaghan 2: Pt to complete transfers with SBA and 4WW 3: Pt to ambulate 80' with SBA and 4WW 4: Pt to asc/desc platform stair x2 with 4WW and CGA. 5: Pt to demonstrate adherence to LINDSEY precautions. Patient's Goals
[2019-01-28] MEDS ORDERED: ASPI-757 PO (15:54)
[2019-01-28] MEDS ORDERED: PER PO (15:54)
[2019-01-28] MEDS ORDERED: TRAM-420 PO (15:54)
--- NOTE | 2019-01-28 16:07 | Hospitalist Depart ---
Discharge Summary Reason for Hosp/Final Diag: (1) Closed right hip fracture Status: Acute Hospital Course & Plan: Dr. Garza initially consulted and Dr. Hollins performed LINDSEY 01/26/19. She tolerated surgery well. She was placed on 325mg ASA daily for DVT prophylaxis and will continue for an additional 30 days. She was progressing well with physical/occupational therapy. She will follow up with Dr. Hollins and PT/OT as an outpatient. (2) Wheezing Status: Chronic Hospital Course & Plan: She reported chronic cough and wheezing. Likely has COPD secondary to long smoking history, but had not previously been diagnosed. She is doing well, but was requiring oxygen at 1-2L via nasal cannula. She will follow up with Dr. Burns regarding this in the next 1-2 weeks. (3) Diabetes Hospital Course & Plan: We did hold her usual metformin initially, but we did restart it and supplemented with SSI as needed. Her glucose checks were reasonable throughout her stay (4) HTN (hypertension) Status: Chronic Hospital Course & Plan: She continued on her usual lisinopril. (5) Tobacco abuse Status: Chronic Hospital Course & Plan: She was on a 14mg nicotine patch during her stay. Departure Weight (Pounds): 191 Result Diagram: 01/26/19 0530 01/26/19 0530 Item Value Date Time White Blood Count 16.1 k/uL H 01/25/19 1530 Hemoglobin 15.8 g/dL 01/25/19 1530 Hematocrit 46.2 % 01/25/19 1530 Platelet Count 219 K/uL 01/25/19 1530 Sodium Level 129 mmol/L L 01/25/19 1530 Potassium Level 4.5 mmol/L 01/25/19 1530 Chloride Level 97 mmol/L L 01/25/19 1530 Carbon Dioxide Level 24 mmol/L 01/25/19 1530 Blood Urea Nitrogen 12 mg/dl 01/25/19 1530 Creatinine 0.50 mg/dl L 01/25/19 1530 Glomerular Filtration Rate Calc > 60.0 01/25/19 1530 Random Glucose 111 mg/dl H 01/25/19 1530 Calcium Level 9.1 mg/dl 01/25/19 1530 Total Bilirubin 0.6 mg/dl 01/25/19 1530 Aspartate Amino Transf (AST/SGOT) 34 U/L 01/25/19 1530 Alanine Aminotransferase (ALT/SGPT) 30 U/L 01/25/19 1530 Alkaline Phosphatase 58 U/L 01/25/19 1530 Troponin I < 0.012 ng/ml 01/25/19 1530 Total Protein 6.9 g/dl 01/25/19 1530 Albumin 4.1 g/dl 01/25/19 1530 B-Type Natriuretic Peptide 10 pg/ml 01/25/19 1530 Imaging PATIENT NAME: Blanca Slaughter : 1955 MR: [id number] V: [id number] EXAM DATE: ORDERING PHYSICIAN: RIA ASHLEY TECHNOLOGIST: Location: [facility] [place] Patient: Blanca Slaughter : 1955 Visit/Account:[id number] Date of Sevice: 01/25/2019 EXAMINATION: KUB 01/25/2019 3:27 PM HISTORY: fall with right hip pain COMPARISON: Separate right hip series today FINDINGS: Mild to moderate amount of fecal material in the colon but no substantial retention and certainly no distal impaction. Bowel is not distended. Soft tissue contours are unremarkable. Degenerative changes in the spine. Subcapital fracture in the right hip. IMPRESSION: 1. Wfww-vo-dhknnalm amount of fecal material in the colon without substantial retention or any impaction. 2. Subcapital right femoral neck fracture. Report Dictated By: Sheldon Chin MD at 01/25/2019 4:08 PM Report E-Signed By: Sheldon Chin MD at 01/25/2019 4:10 PM WSN:LONGCLCREAD PATIENT NAME: Blanca Slaughter : 1955 MR: [id number] V: [id number] EXAM DATE: ORDERING PHYSICIAN: RIA ASHLEY TECHNOLOGIST: Location: [facility] [place] Patient: Blanca Slaugther : 1955 Visit/Account:[id number] Date of Sevice: 01/25/2019 EXAMINATION: Right hip, 2 views 01/25/2019 3:27 PM HISTORY: Fall on 01/20/2019 COMPARISON: Separate KUB today. AP pelvis 11/12/2011. Right hip 05/08/2007 FINDINGS: Subcapital femoral neck fracture in the proximal right femur. Femoral head still articulates within the acetabulum. No other acute bony finding in the pelvis. IMPRESSION: Subcapital right femoral neck fracture. Report Dictated By: Sheldon Chin MD at 01/25/2019 4:06 PM Report E-Signed By: Sheldon Chin MD at 01/25/2019 4:11 PM WSN:LONGCLCREAD PATIENT NAME: Blanca Slaughter : 1955 MR: [id number] V: [id number] EXAM DATE: [id number] ORDERING PHYSICIAN: RIA ASHLEY TECHNOLOGIST: Location: [facility] [place] Patient: Blanca Slaughter : 1955 Visit/Account:[id number] Date of Sevice: 01/25/2019 EXAMINATION: Portable AP Chest 01/25/2019 3:27 PM HISTORY: fall with right hip pain COMPARISON: 06/23/2012 FINDINGS: Cardiomediastinal contours: Normal Lungs and pleura: Stable haziness along left heart border presumptively pericardial fat or lingular scarring. No acute pulmonary or pleural process. Bones/soft tissues: Normal IMPRESSION: Unremarkable portable chest. Report Dictated By: Sheldon Chin MD at 01/25/2019 4:09 PM Report E-Signed By: Sheldon Chin MD at 01/25/2019 4:10 PM WSN:LONGCLCREAD PATIENT NAME: Blanca Slaughter : 1955 MR: [id number] V: [id number] EXAM DATE: [id number] ORDERING PHYSICIAN: RIA ASHLEY TECHNOLOGIST: Location: [facility] [place] Patient: Blanca Slaughter : 1955 Visit/Account:[id number] Date of Sevice: 01/25/2019 HIP RIGHT COMPARISON: Right hip radiograph earlier today HISTORY: hip fx TECHNIQUE: 1 AP traction view of the right hip FINDINGS: BONES: Right femoral head is aligned with the acetabulum. Subcapital right femoral neck fracture again noted. With traction there is improved femoral alignment with mild impaction. The rest of the visualized bones are unchanged. SOFT TISSUES: Negative. No visible soft tissue swelling. EFFUSION: None suggested. OTHER: Negative. IMPRESSION: Acute subcapital right hip fracture in improved alignment with traction, with mild impaction. Report Dictated By: Sanjeev Zavala at 01/25/2019 6:01 PM Report E-Signed By: Sanjeev Zavala at 01/25/2019 6:03 PM WSN:[id number] PATIENT NAME: Blanca Slaughter : 1955 MR: [id number] V: [id number] EXAM DATE: [id number] ORDERING PHYSICIAN: SHAUNNA BEAR TECHNOLOGIST: Location: [facility] [place] Patient: Blanca Slaughter : 1955 Visit/Account:[id number] Date of Sevice: 01/26/2019 PELVIS HISTORY: POST-OP PLACEMENT COMPARISON: X-ray examination the right hip January 25, 2019 FINDINGS: Anatomic alignment status post right total hip arthroplasty. Otherwise, bones are stable without unexpected finding. IMPRESSION: Anatomic alignment status post right total hip arthroplasty. Report Dictated By: Brian Stovall MD at 01/26/2019 5:14 PM Report E-Signed By: Brian Stovall MD at 01/26/2019 5:15 PM WSN:[id number] EKG PATIENT NAME: BLANCA SLAUGHTER : [id number] MR: [id number] V: [id number] EXAM DATE: [id number] ORDERING PHYSICIAN: RIA ASHLEY TECHNOLOGIST: Test Reason : fall Blood Pressure : / mmHG Vent. Rate : 088 BPM Atrial Rate : 088 BPM P-R Int : 144 ms QRS Dur : 092 ms QT Int : 360 ms P-R-T Axes : 020 075 053 degrees QTc Int : 435 ms Normal sinus rhythm Normal ECG No previous ECGs available Confirmed by Shaunna Bolaños ([id number]) on 01/25/2019 7:40:52 PM Referred By: Confirmed By:Shaunna Bear Condition: Improved Discharge: Home, Self Care Time Spent: > 30 min Discharge Instructions Home Meds Active Scripts Oxycodone/Acetaminophen (OXYCODONE/ACETAMINOPHEN 5MG/325 MG) 5 Mg/325 Mg Tab, 1- 2 TAB PO Q6H PRN for PAIN, #40 TAB 0 Refills Prov:LITZY SORIA MD 01/28/19 Aspirin (ASPIRIN) 325 Mg Tablet, 325 MG PO QDAY for 30 Days, #30 TAB 0 Refills Prov:LITZY SORIA MD 01/28/19 Tramadol Hcl (TRAMADOL HCL) 50 Mg Tablet, 1 TAB PO Q8H PRN for PAIN for 30 Days, TAB Do Not Take while using Percocet for pain Prov:LITZY SORIA MD 01/28/19 Reported Medications Melatonin (MELATONIN) 5 Mg Tablet, 5-10 MG PO HS PRN for INSOMNIA 01/25/19 Paroxetine Hcl (PAROXETINE HCL) 40 Mg Tablet, QDAY 01/25/19 Simvastatin (SIMVASTATIN) 20 Mg Tablet, QDAY 01/25/19 Metformin Hcl (METFORMIN HCL) 1,000 Mg Tablet, 500 MG PO BID 01/25/19 Lisinopril (Lisinopril) 10 Mg Tablet, 10 MG PO DAILY 05/15/12 Discontinued Reported Medications Meloxicam (Mobic) 15 Mg Tablet, 15 MG PO 05/15/12 [Vit D3] No Conflict Check 05/15/12 Duloxetine Hcl (CYMBALTA) 20 Mg Capsule.dr, 60 MG PO 05/15/12 Niacin (NIASPAN (OR EQUIV)) 500 Mg Tabcr, 500 MG PO 05/15/12 Metformin Hcl (GLUCOPHAGE (OR EQUIV)) 500 Mg Tab, 500 MG PO 05/15/12 Docusate Sodium (COLACE (OR EQUIV)) 100 Mg Cap, 50 MG PO 05/15/12 Pregabalin (Lyrica) 50 Mg Cap, 150 MG PO BID 05/15/12 Carisoprodol (Soma) 350 Mg Tab, 350 MG PO QID 05/15/12 Prednisone (Prednisone) 10 Mg Tab, 10 MG PO QDAY 05/15/12 Follow up Referrals: Family Practice @ [facility] with ELVA BURNS MD Orthopedics @ [facility] with JAZ HOLLINS MD Diet: Diabetic Activity: As Tolerated (as outlined by Physical Therapy), With Walker Special Instructions: Follow up with Dr. Hollins in 1-2 weeks at [facility]. Follow up with Dr. Burns in 1-2 weeks or sooner if any problems. Oxygen at 2L via nasal cannula continuously Copies to: ELVA BURNS MD; JAZ HOLLINS MD ; Venous Thromboembolism Antithrombotics Is Pt On Any Antithrombotics?: Yes Problem Qualifiers (1) Closed right hip fracture: Encounter type: initial encounter Qualified Codes: S72.001A - Fracture of unspecified part of neck of right femur, initial encounter for closed fracture LITZY SORIA MD Jan 28, 2019 16:07
[2019-01-29] MEDS ORDERED: INFLUENZA VIRUS VAC 0.5ML SYR IM ONLY ONE (09:00)
== END 2019-01-28 16:30 | disposition home or self-care (01) | DRG 470 ==
LOC: ER 14:54 → MED 18:10
PROVIDERS: ADMIT Internal Medicine; ATTEND Internal Medicine
PROC: 0SRR0JA Replacement of Right Hip Joint, Femoral Surface with Synthetic Substitute, Uncemented, Open Approach (ICD-10-PCS; principal; 2019-01-25)
DX: S72.011A Unspecified intracapsular fracture of right femur, initial encounter for closed fracture (principal); G25.81 Restless legs syndrome; I10 Essential (primary) hypertension; E78.5 Hyperlipidemia, unspecified; E11.40 Type 2 diabetes mellitus with diabetic neuropathy, unspecified; G89.29 Other chronic pain; J44.9 Chronic obstructive pulmonary disease, unspecified; F17.210 Nicotine dependence, cigarettes, uncomplicated; W01.0XXA Fall on same level from slipping, tripping and stumbling without subsequent striking against object, initial encounter; Y92.89 Other specified places as the place of occurrence of the external cause; Y99.8 Other external cause status; Z79.84 Long term (current) use of oral hypoglycemic drugs
CPT/HCPCS: 36415; 36416; 71045; 72170; 74018; 82040; 82247; 82310; 82374; 82435; 82565; 82947; 82948; 83880; 84075; 84132; 84155; 84295; 84450; 84460; 84484; 84520; 85025; 86850; 86900; 86901; 93005; 94640; 94667; 96374; 97161; 99285; C1776; J0690; J1100; J2001; J2270; J2405; J2704; J3010; J3370; J3490; J7030; J7060